=== PATIENT | female | born 1970 | race Caucasian/White ===

== ENCOUNTER 2017-01-23 17:35 | Emergency (ER) | payer OTHER ==
--- NOTE | ~2017-01-23 | CR63 ---
[facility]. [facility] A Service of [facility] & [facility] RADIOLOGY TEXT RESULTS PATIENT: OLIVER DELGADILLO LOCATION: SED : 68 UNIT #: [id number] AGE: [address]: CHAD MAYERS SEX: F ORDER DR: [id number] [place] [id number] E MR#: [id number] Acc #: [id number] NAME: OLIVER DELGADILLO : 1970 SEX: F STUDY DATE/TIME: 01/23/2017 18:46 UNIT: SED ROOM: STUDY DESCRIPTION: CR Chest 2 View Attending Physician: Chad Mayers Aprn Ordering Physician: Chad Mayers Aprn Primary Care Physician: Shania Felipe A.P.R.N. MEDICAL IMAGING REPORT This report is preliminary unless electronic signature is present. EXAM Chest PA and lateral 01/23/2017 HISTORY Cough, chest congestion, shortness breath and throat pain beginning last night, COPD exacerbation. Benign essential hypertension. FINDINGS Two views of the chest were obtained. The lungs are clear. The heart and mediastinum have a normal contour, and the heart size is normal. No pleural effusions are seen. The lungs are hyperinflated, consistent with chronic obstructive pulmonary disease. There is no evidence of active disease. IMPRESSION Chronic obstructive pulmonary disease. No active disease. Dictated by... Misbah Santos M.D. THIS IS AN ELECTRONICALLY VERIFIED REPORT Misbah Santos M.D. at 01/26/2017 8:26 AM BYRON/zenaida TD: 01/23/2017 23:33 JOB #: [id number] MEDICAL IMAGING REPORT Page 1 of 1
[~2017-01-23 17:35] MED LIST: ACETAMINOPHEN325 MG PO; ADVAIR 100-501 EAC1 IH; ALBUTEROL 0.5ML INH; ASPIR-TRIN325 MG PO; DOXYCYCLINE HY100 M1 PO; LEVAQUIN750 MG PO; LISINOPRIL10 MG PO; MOBIC PO; NICOTINE TRANSD14 MG EXT; PHENERGAN DM1 ML PO; PREDNISONE PO; PROVENTIL17 GM; PROVENTIL17 GM IH; PULMICORT0.25 MG/2; SPIRIVA18 MCG INH; SYMBICORT INH; TESSALON200 MG PO; ZITHROMAX PO; ZITHROMAX500 MG PO
[2017-01-23] MEDS ORDERED: SPIRIVA18 MCG INH (17:50)
[2017-01-23] MEDS ORDERED: BREO ELLIPTA I1 EACH INH (17:50)
== END 2017-01-23 19:51 | disposition home or self-care (01) ==
LOC: SED 17:35
DX: J06.9 Acute upper respiratory infection, unspecified (principal); R05 Cough; J44.9 Chronic obstructive pulmonary disease, unspecified; I10 Essential (primary) hypertension; Z86.73 Personal history of transient ischemic attack (TIA), and cerebral infarction without residual deficits; F17.210 Nicotine dependence, cigarettes, uncomplicated; Z88.1 Allergy status to other antibiotic agents; Z79.899 Other long term (current) drug therapy
CPT/HCPCS: 71020; 87651; 94640; 99285; J1100

== ENCOUNTER 2017-01-28 18:18 | Inpatient (IN) | payer OTHER ==
--- NOTE | ~2017-01-28 | CR63 ---
[facility] A Service of [facility] RADIOLOGY TEXT RESULTS PATIENT: OLIVER DELGADILLO LOCATION: [facility] 242 : 69 UNIT #: [id number] AGE: [address]: Kaycee Mortensen MD SEX: F ORDER DR: [id number] [address] [address] [id number] MR#: [id number] Acc #: [id number] NAME: OLIVER DELGADILLO : 1970 SEX: F STUDY DATE/TIME: 01/28/2017 18:45 UNIT: SED ROOM: STUDY DESCRIPTION: CR Chest 2 View Attending Physician: Di Patrick M.D. Ordering Physician: Randell Arteaga M.D. Primary Care Physician: Shania Felipe A.P.R.N. MEDICAL IMAGING REPORT This report is preliminary unless electronic signature is present. EXAM PA and lateral chest, 01/28/2017. HISTORY Shortness of breath with dyspnea, cough since Thursday. 30-year smoking history. COMPARISON PA lateral chest radiograph, 01/23/2017. FINDINGS Emphysematous changes are present. There is some linear subsegmental atelectasis within the right middle lobe which appears new since the previous examination. No dense lung consolidations are identified, however. Heart size is normal. No pleural effusion or pneumothorax. IMPRESSION 1. New linear subsegmental atelectasis in the right middle lobe, compared to the 01/23/2017 examination, best depicted in the lateral chest radiograph. 2. Emphysema. Dictated by... Alexandra Bee M.D. THIS IS AN ELECTRONICALLY VERIFIED REPORT Alexandra Bee M.D. at 01/29/2017 8:38 AM SAM/sulema TD: 01/28/2017 19:19 JOB #: [id number] [facility] A Service of [facility] RADIOLOGY TEXT RESULTS PATIENT: OLIVER DELGADILLO LOCATION: [facility] [address] [address] #: [id number] : [birth year] UNIT #: [id number] AGE: [address]: Kaycee Mortensen MD SEX: F ORDER DR: MEDICAL IMAGING REPORT Page 1 of 1
--- NOTE | ~2017-01-28 | HP ---
Unit #: [id number] #: [id number] Patient: OLIVER DELGADILLO [id number] [address] [place], [place] [address] [id number] I MR#: [id number] NAME: OLIVER DELGADILLO ROOM: 242 Age: 46 Sex: F Admission Date: 01/28/2017 : 1970 Attending Physician: Margaret Gar M.D. Primary Care Physician: Shania Felipe A.P.R.N. HISTORY AND PHYSICAL CHIEF COMPLAINT Community-acquired pneumonia failing outpatient treatment. HISTORY OF PRESENT ILLNESS This 46-year-old female with O2-dependent COPD, hypertension, obstructive sleep apnea was transferred from [facility] emergency department for a possible community-acquired pneumonia. The patient was well until one week prior to admission when she developed a deep, initially nonproductive cough with some shortness of breath and wheezing. Her boyfriend was also ill and required hospitalization for two days. The patient states that she went to [facility] emergency department and initial chest x-ray was negative. She was treated with steroids along with doxycycline. Symptoms have worsened despite the doxycycline and her cough is now productive of green sputum and worsening shortness of breath. She went back to [facility] ER where a chest x-ray shows right middle lobe new atelectasis. She was given a dose of Rocephin, DuoNeb and IV fluids. The patient was sent to this facility for further workup and treatment. PAST MEDICAL HISTORY 1. COPD on two liters of oxygen. 2. Obstructive sleep apnea on CPAP. 3. Hypertension. 4. Previous lacunar stroke noted on MRI scan in the past. SOCIAL HISTORY The patient lives with her boyfriend. She is smoking one pack per day of tobacco until a week ago when she cut down to less than one-half pack per day. The patient does not drink alcohol. FAMILY HISTORY CAD and breast cancer. ALLERGIES Biaxin. HOME MEDICATIONS 1. Lisinopril 10 mg daily. 2. Proventil nebulizer q.4 hours as needed. 3. Daliresp 500 mcg one-half tablet daily. 4. Spiriva one puff daily. 5. Breo Ellipta 100/25 one puff daily. Unit #: [id number] #: [id number] Patient: OLIVER DELGADILLO 6. Aspirin 325 mg daily. REVIEW OF SYSTEMS Notable for a productive cough, shortness of breath, wheezing, COPD, obstructive sleep apnea, head congestion, hypertension, tobacco abuse. All other systems were reviewed and otherwise negative. PHYSICAL EXAMINATION GENERAL APPEARANCE: A pleasant, moderately obese 44-year-old female who currently is in no acute distress. VITAL SIGNS: Temperature 98.7. Pulse 105. Respirations 22. Blood pressure 148/87. O2 saturation 95% on two liters of oxygen. HEENT: Eyes: PERRLA. Extraocular muscles are intact. Pharynx is benign. NECK: Supple without adenopathy or thyromegaly. CHEST: Mild expiratory wheeze only. CARDIAC: Normal S1, S2 without murmur. ABDOMEN: Bowel sounds are present. No hepatosplenomegaly, tenderness or masses. EXTREMITIES: Without clubbing, cyanosis or edema. Pedal pulses are present. NEUROLOGIC: The patient is awake, alert, oriented. Cranial nerves are intact. Equal strength throughout. DIAGNOSTIC STUDIES LABORATORY: Hematocrit 46.4, normal white count and platelet count. SMA-12: Glucose 130, sodium 133, calcium 8.3. Cardiac markers are negative. IMAGING: Chest x-ray shows new right middle lobe atelectasis and COPD. CARDIOVASCULAR: EKG: Sinus rhythm, rate 90, normal appearing. ASSESSMENT 1. Bronchitis versus community-acquired pneumonia failing outpatient doxycycline with underlying COPD. 2. COPD. 3. Obstructive sleep apnea. 4. Hypertension. 5. Tobacco abuse. PLAN 1. Levaquin pending sputum cultures. 2. IV fluids. 3. Steroids, bronchodilators, mucolytics. 4. DVT prophylaxis. 5. Patient's district fire chief to consult in the morning. The patient sees Terrie Powell. 6. Smoking cessation counseling. Dictated by Margaret Gar M.D. AML/bd TD: 01/29/2017 06:40 JOB #: [id number] Unit #: [id number] #: [id number] Patient: OLIVER DELGADILLO HISTORY AND PHYSICAL Page 1 of 1 X Margaret Gar MD HISTORY AND PHYSICAL
--- NOTE | ~2017-01-28 | CO ---
Unit #: [id number] #: [id number] Patient: OLIVER DELGADILLO [id number] [address] [place], [place] [address] [id number] I MR#: [id number] NAME: OLIVER DELGADILLO ROOM: 242 Age: 46 Sex: F Admission Date: 01/28/2017 : 1970 Attending Physician: Kaycee Mortensen M.D. Primary Care Physician: Shania Felipe A.P.R.N. Consultation Date: 01/29/2017 CONSULTATION REPORT HISTORY OF PRESENT ILLNESS This is a 43-year-old lady with a previous history of several admissions for COPD exacerbation. She also has history of hypertension, obstructive sleep apnea, and she presents with a history of positive sick contact as her . The patient had been in [facility], where she received doxycycline, was sent home on antibiotics. Unfortunately, the patient continues to have cough. She had been on 5 days of antibiotics and she progressed to the point where she was less short of breath and required hospitalization. The chest x-ray PA and lateral shows a new right middle lobe infiltrate. The patient is coughing productive green sputum. She is having subjective fatigue, some chills. No nausea, vomiting, or diarrhea. REVIEW OF SYSTEMS As per the history of present illness, otherwise the 12-point review of systems is negative. PAST MEDICAL HISTORY Significant for COPD, obstructive sleep apnea, hypertension, history of lacunar stroke, and 2 L of oxygen continuous at home. SOCIAL HISTORY The patient smokes pack a day until very recently. No history of alcohol. Lives with her boyfriend, is retired. FAMILY HISTORY Significant for coronary artery disease and breast cancer. ALLERGIES The patient is allergic Biaxin. HOME MEDICATIONS Include Proventil 1 neb every 4 hours as needed, Daliresp 500 mcg daily, lisinopril 10 mg daily, Spiriva 18 mcg one capsule daily, Breo Ellipta 100/25 mcg one puff daily, and aspirin 325 mg daily. FAMILY HISTORY Noncontributory. PHYSICAL EXAMINATION VITAL SIGNS: T-current 97.6, pulse 85, respiratory rate 18, blood pressure 134/83. In's and out's 480/500. HEENT : Extraocular movements are intact. NECK: Shows no accessory muscle use. CHEST: Shows decreased breath sounds bilaterally. Unit #: [id number] #: [id number] Patient: OLIVER DELGADILLO CARDIOVASCULAR: Regular rate. No gallop. ABDOMEN: Soft, nontender, and nondistended. EXTREMITIES: Shows no significant edema. DIAGNOSTIC STUDIES LABORATORY RESULTS: The white count 9.7, hemoglobin 15.6, platelets of 319. BUN and creatinine 19/0.9, otherwise chem-7 is within normal limits. ASSESSMENT 1. The patient has a history of acute exacerbation of chronic obstructive pulmonary disease. 2. Acute on chronic respiratory failure. 3. Community-acquired pneumonia, failure of outpatient treatment. 4. Obstructive sleep apnea, on home BiPAP. PLAN The patient has been started on steroids and has been started on antibiotics. I am going to add cefepime for more expanded gram-negative coverage. I would like to continue the Levaquin and the patient's steroids. I will leave them the same today as the patient is feeling much better and much less agitated and much less short of breath. Tomorrow, we will plan on starting to wean those steroids. We are going to do respiratory viral swab and check MRSA nares. If the patient continues to look good, should be able to discharge her in a day or 2. Thank you very much for this consult and allowing us to participate in the care of this patient. Please page me at [phone] if you have any questions. Dictated by... Cristian Lopez M.D. TREVON/herb TD: 01/30/2017 06:04 JOB #: [id number] CONSULTATION REPORT Page 1 of 1 X Salvatore Lopez MD CONSULTATION REPORT
--- NOTE | ~2017-01-28 | EKG ---
PATIENT: OLIVER DELGADILLO UNIT #: [id number] Ventricular Rate: 91 BPM Atrial Rate: 91 BPM P-R Interval: 138 ms QRS Duration: 88 ms Q-T Interval: 372 ms QTC Calculation(Bezet): 457 ms P [place]: 76 degrees Calculated R [place]: 69 degrees Calculated T [place]: 54 degrees Diagnosis Line: Normal sinus rhythm Diagnosis Line: Normal ECG Diagnosis Line: When compared with ECG of 03-NOV-2014 11:54, Diagnosis Line: No significant change was found Diagnosis Line: Confirmed by ARASH AREVALO MD ([id number]) on Diagnosis Line: 01/29/2017 4:47:17 PM INTERPRETING MD: MICKEY PALMER
--- NOTE | ~2017-01-28 | DS ---
Unit #: [id number] #: [id number] Patient: OLIVER DELGADILLO [id number] [address] [address] [id number] I MR#: [id number] NAME: OLIVER DELGADILLO ROOM: 242 Age: 46 Sex: F Admission Date: 01/28/2017 : 1970 Discharge Date: 01/30/2017 Attending Physician: Kaycee Mortensen M.D. Primary Care Physician: Shania Felipe A.P.R.N. DISCHARGE SUMMARY PRINCIPAL DIAGNOSES 1. Acute exacerbation of chronic obstructive pulmonary disease. 2. Acute viral bronchitis. 3. Chronic hypoxic respiratory failure, maintained on 2 liters of oxygen per nasal cannula continuously. 4. Hypokalemia. 5. Steroid-induced leukocytosis. 6. Hypertension. 7. Continued tobacco abuse. 8. Obesity. 9. Obstructive sleep apnea. CONSULTANTS Dr. Lopez, pulmonology. DIAGNOSTIC STUDIES IMAGING: Chest x-ray on January 28, 2017 without any acute findings. Changes of COPD are noted. CLINICAL HISTORY AND HOSPITAL COURSE Ms. Delgadillo is a 46-year-old female with a history of chronic respiratory failure who presented to the emergency department with shortness of breath, failing outpatient therapy. Please refer to H and P for further details. Chest x-ray in the emergency department revealed some right middle lobe atelectasis, but it was otherwise unremarkable. The patient was afebrile and did not have any evidence of leukocytosis. She was subsequently admitted. The patient was started on IV steroids in addition to empiric broad-spectrum antibiotics. She remained afebrile, and white blood cell count did increase but after dosing of steroids. Procalcitonin was completely normal. After IV steroids, the patient's breathing has significantly improved. Awaiting an ambulating O2 sat on her home 2 liters of oxygen per nasal cannula. Assuming that this is 89% or above, I think she can safely be discharged home with close followup. The patient has been counselled regarding her continued tobacco abuse. She was also mildly hypokalemic, but this has been treated and is resolved. DISCHARGE CONDITION Stable. DISCHARGE STATUS Discharge to home. Unit #: [id number] #: [id number] Patient: OLIVER DELGADILLO DISCHARGE MEDICATIONS 1. Albuterol nebulizer solution 3 mL q.4 hours p.r.n. shortness of breath. 2. Prednisone 10 mg tablets 4 tablets for 3 days, 3 tablets for 3 days, 2 tablets for 3 days, 1 tablet for 3 days, then discontinue. 3. Spiriva 18 mcg 1 puff daily. 4. Breo Ellipta 100/25 mcg 1 puff daily. 5. Zestril 10 mg daily. 6. Aspirin 325 mg daily. 7. Daliresp 500 mcg 1/2 tablet daily. 8. Doxycycline 100 mg p.o. b.i.d. for 5 days. DISCHARGE INSTRUCTIONS Patient was instructed to follow a low-calorie diet. She can increase her activity as tolerated. To wear oxygen at 2 liters per nasal cannula at all times. FOLLOW-UP 1. Patient will follow up with Dr. Lopez and/or Terrie Powell A.P.R.N. in approximately 2 weeks. 2. She should follow up with Shania Felipe A.P.R.N. in 4 weeks. Dictated by... Kaycee Mortensen M.D. DAVID/franko TD: 01/31/2017 14:21 JOB #: [id number] DISCHARGE SUMMARY Page 1 of 1 X Kaycee Mortensen MD DISCHARGE SUMMARY
[~2017-01-28 18:18] MED LIST changes: +BREO ELLIPTA I1 EACH INH
[2017-01-28 19:50] LABS: BASOPHIL# 0.1 X10e3 (0-0.3); BASOPHIL% 0.6 % (0-2.5); EOSINOPHIL% 0.1 % (0.0-7.0); HEMATOCRIT 46.4 % (35.0-45.0); HEMOGLOBIN 15.6 gm/dL (12.0-16.0); LYMPHOCYTE# 1.5 X10e3 (1.0-3.5); LYMPHOCYTE% 15.8 % (17.0-45.0); MEAN CELL VOLUME 91.8 FL (83-96); MEAN CORPUSCULAR HEMOGLOBIN 30.8 PG (28-34); MEAN CORPUSCULAR HGB CONC 33.6 g/dL (30-36); MEAN PLATELET VOLUME 7.7 FL (6.5-11.5); MONOCYTE# 0.8 X10e3 (0-1.0); MONOCYTE% 8.3 % (3.0-12.0); NEUTROPHIL# 7.3 X10e3 (1.5-7.1); NEUTROPHIL% 75.2 % (40-75); PLATELET COUNT 319 X10e3 (140-420); RED BLOOD COUNT 5.06 X10e (3.90-5.30); RED CELL DISTRIBUTION WIDTH 13.4 % (11.0-15.5); WHITE BLOOD COUNT 9.7 X10e3 (4.0-10.5)
[2017-01-28 19:53] LABS: DIFF IND NO
[2017-01-28 20:08] LABS: ALBUMIN SERUM 3.8 g/dL (3.5-5.0); BILIRUBIN,TOTAL 0.2 mg/dL (0.2-2.0); BUN/CREATININE RATIO 21.11; CALCIUM SERUM 8.3 mg/dL (8.4-10.2); CREATININE SERUM 0.9 mg/dL (0.6-1.4); GLOM FILT RATE Estimated 76.2 mL/min (>60); POTASSIUM 3.8 mmol/L (3.5-5.1); PROTEIN TOTAL SERUM 7.3 g/dL (6.0-8.3)
[2017-01-28 20:11] LABS: POC - CKMB <1.0 ng/mL (0.0-7.9)
[2017-01-28 20:12] LABS: POC - TROPONIN <0.05 ng/mL (<=0.05)
[2017-01-28 21:57] LABS: POC - CKMB <1.0 ng/mL (0.0-7.9); POC - TROPONIN <0.05 ng/mL (<=0.05)
[2017-01-28] MEDS ORDERED: DALIRESP500 MCG PO (23:29)
[2017-01-28] MEDS ORDERED: LISINOPRIL10 MG PO (23:30)
[2017-01-28] MEDS ORDERED: BREO ELLIPTA 11 EACH INH (23:31)
[2017-01-28] MEDS ORDERED: ASPIR-TRIN325 MG PO (23:31)
[2017-01-28] MEDS ORDERED: SPIRIVA18 MCG INH (23:31)
[2017-01-29 07:23] LABS: HEMATOCRIT 45.4 % (35.0-45.0); HEMOGLOBIN 14.8 gm/dL (12.0-16.0); MEAN CELL VOLUME 92.5 FL (83-96); MEAN CORPUSCULAR HEMOGLOBIN 30.2 PG (28-34); MEAN CORPUSCULAR HGB CONC 32.7 g/dL (30-36); MEAN PLATELET VOLUME 7.8 FL (6.5-11.5); RED BLOOD COUNT 4.91 X10e (3.90-5.30); RED CELL DISTRIBUTION WIDTH 13.4 % (11.0-15.5); WHITE BLOOD COUNT 11.8 X10e3 (4.0-10.5)
[2017-01-29 07:50] LABS: BUN/CREATININE RATIO 18.88; CALCIUM SERUM 7.9 mg/dL (8.4-10.2); CREATININE SERUM 0.9 mg/dL (0.6-1.4); GLOM FILT RATE Estimated 76.2 mL/min (>60); POTASSIUM 3.4 mmol/L (3.5-5.1)
[2017-01-30 06:43] LABS: HEMATOCRIT 49.2 % (35.0-45.0); HEMOGLOBIN 15.7 gm/dL (12.0-16.0); MEAN CELL VOLUME 93.5 FL (83-96); MEAN CORPUSCULAR HEMOGLOBIN 29.8 PG (28-34); MEAN CORPUSCULAR HGB CONC 31.8 g/dL (30-36); RED BLOOD COUNT 5.26 X10e (3.90-5.30); RED CELL DISTRIBUTION WIDTH 13.2 % (11.0-15.5); WHITE BLOOD COUNT 16.9 X10e3 (4.0-10.5)
[2017-01-30 07:15] LABS: CALCIUM SERUM 8.9 mg/dL (8.4-10.2); CREATININE SERUM 0.8 mg/dL (0.6-1.4); GLOM FILT RATE Estimated 87.9 mL/min (>60); MAGNESIUM 2.1 mg/dL (1.6-3.0)
[2017-01-30 07:17] LABS: POTASSIUM 4.9 mmol/L (3.5-5.1)
[2017-01-30] MEDS ORDERED: DOXYCYCLINE HY100 M3 PO (19:47)
[2017-01-30] MEDS ORDERED: PREDNISONE PO (19:49)
[2017-01-30] MEDS ORDERED: SPIRIVA18 MCG INH (20:02)
== END 2017-01-30 20:25 | disposition home or self-care (01) | DRG 190 ==
LOC: SED 18:18 → C2A 21:27 → SED 21:27 → SEDOF 21:27 → C2A 01-29 00:30 → SEDOF 01-29 00:44 → C2A 01-29 03:15
PROVIDERS: Emergency Medicine; Internal Medicine
DX: J44.0 Chronic obstructive pulmonary disease with (acute) lower respiratory infection (principal); J18.9 Pneumonia, unspecified organism; J96.21 Acute and chronic respiratory failure with hypoxia; J98.11 Atelectasis; F17.210 Nicotine dependence, cigarettes, uncomplicated; J44.1 Chronic obstructive pulmonary disease with (acute) exacerbation; J20.8 Acute bronchitis due to other specified organisms; E87.6 Hypokalemia; D72.829 Elevated white blood cell count, unspecified; T38.0X5A Adverse effect of glucocorticoids and synthetic analogues, initial encounter; Y92.9 Unspecified place or not applicable; I10 Essential (primary) hypertension; E66.9 Obesity, unspecified; Z68.38 Body mass index [BMI] 38.0-38.9, adult; G47.33 Obstructive sleep apnea (adult) (pediatric); Z86.73 Personal history of transient ischemic attack (TIA), and cerebral infarction without residual deficits; Z88.8 Allergy status to other drugs, medicaments and biological substances; Z80.3 Family history of malignant neoplasm of breast; Z82.49 Family history of ischemic heart disease and other diseases of the circulatory system; Z99.81 Dependence on supplemental oxygen
CPT/HCPCS: 36415; 71020; 80048; 80053; 82308; 82553; 83735; 84484; 85025; 85027; 87040; 87070; 87205; 87449; 87633; 90732; 93005; 94640; 94760; 96361; 96374; 99285; G0009; J0692; J0696; J1650; J1956; J2920